=== PATIENT | male | born 2000 | race Caucasian/White ===

== ENCOUNTER 2025-04-15 15:30 | Emergency (ER) | payer BC ==
[2025-04-15] MEDS: Diphtheria,Pertussis(Acell),Tetanus Vaccine 0.5 ML Syringe IM ONE (15:50)
== END 2025-04-15 16:15 | disposition home or self-care (01) ==
LOC: MW.ED 15:30
DX: S71.111A Laceration without foreign body, right thigh, initial encounter (principal); Z23 Encounter for immunization; W26.0XXA Contact with knife, initial encounter
CPT/HCPCS: 12001; 90471; 90715; 99282; J2003; 99283

== ENCOUNTER 2025-04-22 13:36 | Emergency (ER) | payer BC | END 2025-04-22 14:05 | disposition left against medical advice (07) | LOC: MW.ED 13:36 | DX: S71.111D Laceration without foreign body, right thigh, subsequent encounter (principal); W26.0XXD Contact with knife, subsequent encounter | CPT/HCPCS: 99281 ==